=== PATIENT | female | born 1990 | race Caucasian/White ===

== ENCOUNTER 2019-11-30 06:44 | Inpatient (IN) | payer OTHER ==
[~2019-11-30 06:44] MED LIST: Lidocaine 1% with EPINEPHrine 1:100,000 10 ML MDV ONE; ePHEDrine Sulfate/0.9% NaCl/Pf 25 MG/5 ML SYRINGE IV ONE
[2019-11-30] MEDS ORDERED: Nalbuphine 10 MG/ML Syringe IVPUSH PRN (07:44)
[2019-11-30] MEDS ORDERED: Sodium Chloride 0.9% 10 ML Syringe FLUSH PRN (07:44)
[2019-11-30] MEDS ORDERED: Lidocaine 1% 50 ML MDV INJECT ONE (07:44)
[2019-11-30] MEDS ORDERED: Calcium Carbonate 500 MG Tab.Chew PO PRN (07:44)
[2019-11-30] MEDS ORDERED: Oxytocin/Lactated Ringers 10 UNIT/1,000 ML BAG IV SCH ×2 (07:45)
[2019-11-30] MEDS: Lactated Ringers 1,000 ML IV SCH ×4 (08:10→19:03)
[2019-11-30] MEDS ORDERED: ePHEDrine 50 MG/ML SDV IVPUSH PRN (08:33)
[2019-11-30] MEDS ORDERED: Ondansetron 4 MG/2 ML SDV IVPUSH PRN (08:33)
--- NOTE | 2019-11-30 08:33 | PCM.PREANE ---
Preanesthetic Assessment - Procedure Proposed Procedure: Epidural - Anesthesia/Transfusion/Family Hx Anesthesia History: Prior Anesthesia Without Reaction Family History of Anesthesia Reaction: No Transfusion History: No Prior Transfusion(s) Intubation History: Unknown - Review of Systems General: No Symptoms Pulmonary: No Symptoms Cardiovascular: No Symptoms Gastrointestinal: No Symptoms (GERD with ) Neurological: No Symptoms Other: Reports: None, Easy Bruising - Physical Assessment NPO Status Date: 11/30/19 NPO Status Time: 10:00 Vital Signs: HR:120 BP:130/85 Sat:99% Temp:98.2 Resp:20 Height: 1.8 m Weight: 152 kg ASA Class: 3 Mental Status: Alert & Oriented x3 Airway Class: Mallampati = 2 Dentition: Reports: Normal Dentition, Caries Thyro-Mental Finger Breadths: 3 Mouth Opening Finger Breadths: 3 ROM/Head Extension: Full Lungs: Clear to Auscultation, Normal Respiratory Effort Cardiovascular: Regular Rate, Regular Rhythm, No Murmurs - Lab Values: Laboratory Last Values WBC 8.18 K/mm3 (3.98-10.04) 11/30/19 08:00 RBC 4.59 M/mm3 (3.98-5.22) 11/30/19 08:00 Hgb 14.1 gm/dl (11.2-15.7) 11/30/19 08:00 Hct 42.7 % (34.1-44.9) 11/30/19 08:00 MCV 93.0 fl (79.4-94.8) D 11/30/19 08:00 MCH 30.7 pg (25.6-32.2) 11/30/19 08:00 MCHC 33.0 g/dl (32.2-35.5) 11/30/19 08:00 RDW Std Deviation 44.5 fL (36.4-46.3) 11/30/19 08:00 Plt Count 217 K/mm3 (182-369) 11/30/19 08:00 MPV 10.8 fl (9.4-12.3) 11/30/19 08:00 Neut % (Auto) 65.4 % (34.0-71.1) 11/30/19 08:00 Lymph % (Auto) 23.5 % (19.3-51.7) 11/30/19 08:00 Wilbarger % (Auto) 8.1 % (4.7-12.5) 11/30/19 08:00 Eos % (Auto) 1.0 (0.7-5.8) 11/30/19 08:00 Baso % (Auto) 0.4 % (0.1-1.2) 11/30/19 08:00 Neut # (Auto) 5.36 K/mm3 (1.56-6.13) 11/30/19 08:00 Lymph # (Auto) 1.92 K/mm3 (1.18-3.74) 11/30/19 08:00 Wilbarger # (Auto) 0.66 K/mm3 (0.24-0.36) H 11/30/19 08:00 Eos # (Auto) 0.08 K/mm3 (0.04-0.36) 11/30/19 08:00 Baso # (Auto) 0.03 K/mm3 (0.01-0.08) 11/30/19 08:00 Above labs reviewed and noted and within acceptable ranges to proceed with epidural if desired. - Allergies Allergies/Adverse Reactions: Allergies Allergy/AdvReac Type Severity Reaction Status Date / Time No Known Allergies Allergy Verified 11/30/19 08:30 - Anesthesia Plan Pre-Op Medication Ordered: None - Acknowledgements Anesthesia Type Planned: Epidural Pt an Appropriate Candidate for the Planned Anesthesia: Yes Alternatives and Risks of Anesthesia Discussed w Pt/Guardian: Yes Pt/Guardian Understands and Agrees with Anesthesia Plan: Yes PreAnesthesia Questionnaire HEENT History: Reports: None PROPERTY ADMINISTRATOR History: Reports: Fibroids, - Past Surgical History HEENT Surgical History: Reports: Adenoidectomy, Oral Surgery, Tonsillectomy - HOME MEDS Home Medications: Home Meds Vit No.130/Iron/Folic [ Tablet] 1 each PO DAILY 08/18/16 [ History] - CURRENT (IN HOUSE) MEDS Current Meds: Current Medications Calcium Carbonate/Glycine (Tums) 1,000 mg PO Q2H PRN PRN Reason: Indigestion Lactated Ringer's (Ringers, Lactated) 1,000 mls @ 100 mls/hr IV ASDIRECTED NATALIO Last Admin: 11/30/19 08:10 Dose: 40 mls/hr Oxytocin/Lactated Ringer's (Pitocin In Lr 10 Units/1,000 Ml) 10 unit in 1,000 mls @ 12 mls/hr IV TITRATE NATALIO; Protocol Last Titration: 11/30/19 08:26 Dose: 4 munits/min, 24 mls/hr Oxytocin/Lactated Ringer's (Pitocin In Lr 10 Units/1,000 Ml) 10 unit in 1,000 mls @ 500 mls/hr IV .CONTINUOUS NATALIO Nalbuphine HCl (Nubain) 10 mg IVPUSH Q2H PRN PRN Reason: Pain Sodium Chloride (Saline Flush) 10 ml FLUSH ASDIRECTED PRN PRN Reason: Keep Vein Open Discontinued Medications Lidocaine HCl (Xylocaine 1%) 20 ml INJECT ONETIME ONE Stop: 11/30/19 07:45
[2019-11-30] MEDS ORDERED: Phenylephrine 1 MG in Sodium Chloride 0.9% 10 ML IV SCH (08:45)
[2019-11-30] MEDS: Oxytocin/Lactated Ringers 20 UNIT/1,000 ML BAG IV SCH ×2 (11:41→22:00)
[2019-11-30] MEDS ORDERED: Acetaminophen 325 MG Tab PO PRN ×2 (11:42→23:02)
--- NOTE | 2019-11-30 12:11 | PCM.LDHP ---
L&D History of Present Illness - General Date of Service: 11/30/19 Admit Problem/Dx: Patient Status Order with Admit Dx/Problem 11/30/19 07:44 Patient Status [ADT] Routine Admission Diagnosis/Problem Admission Diagnosis/Problem Term 11/30/19 12:02 Lindsey is a 29-year-old 2 para 1001 female who is admitted for elective induction of labor at 39-5/7 weeks gestational age with an SUZETTE of 2019. She has had previous section done for nonreassuring heart tones. Source of Information: Patient History Limitations: Reports: No Limitations - History of Present Illness Introduction:: Lindsey is a 29-year-old 2 para 1001 female who is admitted for elective induction of labor at 39-5/7 weeks gestational age with an SUZETTE of 2019. She has had previous section done for nonreassuring heart tones.The procedure and process of trial of labor after section with an attempt at vaginal after section discussed in detail the patient. She appears to understand the risks, benefits, alternatives of care and follow-up. She wishes to proceed and signed a consent. 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 SUZETTE set at 11/24/2019 by an early ultrasound on 05/25/2019 at 12-5/7 gestational age. This is supported by a second ultrasound done on 07/20/2019 at 20 weeks gestation. Patient had menarche at age 10. Cycles every month. Cycles are regular and she is not using control to conception. Her duration is 4 days. Last period 03/01/2019. Previous delivery occurred on 08/19/2016 at 41-5/7 weeks gestational age. Female infant born after 8 hours of labor weight 6 lbs. 4 oz. and was delivered by section done for distress. Patient was noted to have baby with nuchal cord 3 in meconium-stained amniotic fluid. Baby's name is Deb. course: Patient was first seen at 12 weeks gestation on 05/25/2019. She was seen on a regular basis. Weight gain was from 308 pounds to 335.6 pounds. Height growth was ahead of schedule although was very difficult because of body habitus and weight. Her vital signs remained stable throughout the course. She desires an epidural in labor and delivery. She desires a trial of labor after section for an attempt at vaginal after section. Her group B strep screen is negative. She has plans to breast- feed. She is a centering patient. Laboratory testing and shows blood to be positive with negative CT screen. First labs showed hemoglobin 14.0 g/dL and platelets at 228, 000. Rubella titer shows immunity. RPR is nonreactive. Urine culture was negative. Hepatitis B surface antigen and HIV assays were both negative. Chlamydia and gonorrhea assays were both negative. Patient had normal 1 hour GTT and hemoglobin at the end of second trimester. Strep screen is negative. Allergies: None Medications: 1. Clindamycin phosphate 1% external genital when necessary topically for acne. 2. vitamins 1 daily Past medical history: 1. Acne Past surgical history: 1. Tonsillectomy and adenoidectomy 1992. 2. Oral surgery 2013 section 2016 Family history: Mom is alive with hypercholesterolemia. Father is alive history of CVA and adult-onset diabetes. He is status post coronary artery bypass graft. One brother with asthma. 2 brothers alive and well. One sister who is alive and has recently had a . Patient's mom is adopted. Paternal grandmother is alive. Paternal grandfather secondary to cancertype unknown. No bleeding, clotting, , anesthesia or other problems noted in the family. Social history: Patient is . is Nitish. She does not use any significant loss of alcohol, drugs or tobacco. She is an [employer]. She is a college graduate. She does not use any significant most alcohol, drugs or tobacco. Review of systems: In general patient has no complaints. Baby has been active. Skin: Negative Lungs: No infectious symptoms or shortness of breath Cardiovascular: No chest pain or exercise intolerance Breasts: No lumps, changes in size, pain, dimpling, discharge or axillary or supraclavicular concerns. GI: Negative : Changes associated with . Musculoskeletal: Negative Neurological: Negative In general the patient is well-developed, well-nourished, pleasant female of stated age in no acute distress. Last evaluation in clinic on 11/25/2019 her blood pressure is 110/80, weight was 335.6 pounds with pre- weight of 308.6 pounds. Height is 5 feet 11. Pregravid body mass index is 42.7. Skin is warm dry without lesions. HEENT, neck and back within normal limits. Lungs are clear with good breath sounds in all lung smith. Cardiovascular exam shows regular and rhythm without murmurs. Breast exam deferred at this time having been done at first visit found to be normal. Abdomen is gravid with fundal height of 44 cm. Baby is felt to be in a vertex presentation. Genital per exam shows cervix to 1 cm, 70% effaced, soft, mid position, -3, difficult to feel presenting part felt. Cephalic presentation.. Extremities and neurological exam are grossly within normal limits. Pain Score: 6 - Related Data Allergies/Adverse Reactions: Allergies Allergy/AdvReac Type Severity Reaction Status Date / Time No Known Allergies Allergy Verified 11/30/19 08:30 Home Medications: Home Meds Vit No.130/Iron/Folic [ Tablet] 1 each PO DAILY 08/18/16 [ History] Past Medical History HEENT History: Reports: None CALL CENTER OPERATIONS MANAGER History: Reports: Fibroids, Endocrine/Metabolic History: Reports: Obesity/BMI 30+ - Past Surgical History HEENT Surgical History: Reports: Adenoidectomy, Oral Surgery, Tonsillectomy Social & Family History - Family History Family Medical History: Noncontributory - Tobacco Use Smoking Status *Q: Never Smoker - Caffeine Use Caffeine Use: Reports: None - Recreational Drug Use Recreational Drug Use: No H&P Review of Systems - Review of Systems: Review Of Systems: See Below L&D Exam - Exam Exam: See Below - Vital Signs Vital Signs: Last Vital Signs Temp 36.8 C 11/30/19 07:44 Pulse 118 H 11/30/19 07:44 Resp 16 11/30/19 07:44 BP 130/85 11/30/19 07:44 Pulse Ox 99 11/30/19 07:44 Weight: 152 kg - Patient Data Lab Results Last 24 hrs: Laboratory Results - last 24 hr 11/30/19 11/30/19 Range/Units 08:00 08:00 WBC 8.18 (3.98-10.04) K/mm3 RBC 4.59 (3.98-5.22) M/mm3 Hgb 14.1 (11.2-15.7) gm/dl Hct 42.7 (34.1-44.9) % MCV 93.0 D (79.4-94.8) fl MCH 30.7 (25.6-32.2) pg MCHC 33.0 (32.2-35.5) g/dl RDW Std Deviation 44.5 (36.4-46.3) fL Plt Count 217 (182-369) K/mm3 MPV 10.8 (9.4-12.3) fl Neut % (Auto) 65.4 (34.0-71.1) % Lymph % (Auto) 23.5 (19.3-51.7) % Noble % (Auto) 8.1 (4.7-12.5) % Eos % (Auto) 1.0 (0.7-5.8) Baso % (Auto) 0.4 (0.1-1.2) % Neut # (Auto) 5.36 (1.56-6.13) K/mm3 Lymph # (Auto) 1.92 (1.18-3.74) K/mm3 Noble # (Auto) 0.66 H (0.24-0.36) K/mm3 Eos # (Auto) 0.08 (0.04-0.36) K/mm3 Baso # (Auto) 0.03 (0.01-0.08) K/mm3 Manual Slide Review Normal smear Blood Type O POSITIVE Gel Antibody Screen Negative Result Diagrams: 11/30/19 08:00 Problem List Initiated/Reviewed/Updated: Yes Orders Last 24hrs: Active Orders 24 hr Category Date Time Status Patient Status [ADT] Routine ADT 11/30/19 07:44 Active Activity as Tolerated [RC] PFP Care 11/30/19 07:44 Active Antiembolic Devices [RC] .Routine Care 11/30/19 07:46 Active Communication Order [RC] ASDIRECTED Care 11/30/19 07:44 Active Communication Order [RC] ASDIRECTED Care 11/30/19 07:44 Active Communication Order [RC] ASDIRECTED Care 11/30/19 07:44 Active Communication Order [RC] ASDIRECTED Care 11/30/19 07:44 Active Heart Tones [RC] ASDIRECTED Care 11/30/19 07:45 Active Monitoring [RC] INTERMITTENT Care 11/30/19 07:44 Active Notify Provider [RC] ASDIRECTED Care 11/30/19 07:44 Active Notify Provider [RC] ASDIRECTED Care 11/30/19 08:33 Active Notify Provider [RC] PFP Care 11/30/19 07:44 Active Notify Provider [RC] PRN Care 11/30/19 07:44 Active Peripheral IV Care [RC] Q2HR Care 11/30/19 07:45 Active Pump Management, Intrathecal [RC] ASDIRECTED Care 11/30/19 07:46 Active Urinary Catheter Assessment [RC] ASDIRECTED Care 11/30/19 07:44 Active VTE/DVT Education [RC] PER UNIT ROUTINE Care 11/30/19 07:46 Active Vital Signs [RC] PER UNIT ROUTINE Care 11/30/19 07:44 Active Regular Diet [DIET] Diet 11/30/19 Breakfast Active RAPID PLASMA REAGIN,RPR [CHEM] Stat Lab 11/30/19 08:00 Received Acetaminophen [Tylenol] Med 11/30/19 11:42 Active 650 mg PO Q4H PRN Bupivacaine/fentaNYL/NS [fentaNYL/Bupivacaine/NS 2 MCG- Med 11/30/19 08:45 Active 0.125% 100 ML] 100 ml EPIDUR ASDIRECTED Calcium Carbonate [Tums] Med 11/30/19 07:44 Active 1,000 mg PO Q2H PRN Lactated Ringers [Ringers, Lactated] 1,000 ml Med 11/30/19 07:45 Active IV ASDIRECTED Nalbuphine [Nubain] Med 11/30/19 07:44 Active 10 mg IVPUSH Q2H PRN Ondansetron [Zofran] Med 11/30/19 08:33 Active 4 mg IVPUSH ONETIME PRN Oxytocin/Lactated Ringers [Pitocin in LR 10 Units/1,000 Med 11/30/19 07:45 Active ML] 10 unit in 1,000 ml IV .CONTINUOUS Oxytocin/Lactated Ringers [Pitocin in LR 10 Units/1,000 Med 11/30/19 07:45 Active ML] 10 unit in 1,000 ml IV TITRATE Oxytocin/Lactated Ringers [Pitocin in LR 20 Units/1,000 Med 11/30/19 11:15 Active ML] 20 unit in 1,000 ml IV TITRATE Phenylephrine [Juni-Synephrine] 1 mg Med 11/30/19 08:45 Active Sodium Chloride 0.9% [Normal Saline] 10 ml IV TITRATE Sodium Chloride 0.9% [Saline Flush] Med 11/30/19 07:44 Active 10 ml FLUSH ASDIRECTED PRN ePHEDrine [ePHEDrine sulfate] Med 11/30/19 08:33 Active 5 mg IVPUSH ASDIRECTED PRN fentaNYL [Sublimaze] Med 11/30/19 08:33 Active 100 mcg EPIDUR Q3H PRN DVT/VTE Prophylaxis Reflex [OM.PC] Routine Ot 11/30/19 07:46 Ordered Electronic Heart Tones Ext w TOCO [WOMSER] Ot 11/30/19 07:44 Ordered Routine Electronic Heart Tones Internal [WOMSER] Per Unit Ot 11/30/19 07:44 Ordered Routine Peripheral IV Insertion Adult [OM.PC] Routine Ot 11/30/19 07:44 Ordered Resuscitation Status Routine Resus Stat 11/30/19 07:44 Ordered Medication Orders Acetaminophen (Tylenol) 650 mg PO Q4H PRN PRN Reason: Pain Last Admin: 11/30/19 11:59 Dose: 650 mg Calcium Carbonate/Glycine (Tums) 1,000 mg PO Q2H PRN PRN Reason: Indigestion Ephedrine Sulfate (Ephedrine Sulfate) 5 mg IVPUSH ASDIRECTED PRN PRN Reason: Hypotension Fentanyl (Sublimaze) 100 mcg EPIDUR Q3H PRN PRN Reason: Pain Fentanyl/Bupivacaine HCl (Fentanyl/Bupivacaine/Ns 2 Mcg-0.125% 100 Ml) 100 ml EPIDUR ASDIRECTED NATALIO Lactated Ringer's (Ringers, Lactated) 1,000 mls @ 100 mls/hr IV ASDIRECTED NATALIO Last Admin: 11/30/19 08:10 Dose: 40 mls/hr Oxytocin/Lactated Ringer's (Pitocin In Lr 10 Units/1,000 Ml) 10 unit in 1,000 mls @ 12 mls/hr IV TITRATE NATALIO; Protocol Last Titration: 11/30/19 11:42 Dose: 22 munits/min, 132 mls/hr Titration: 11/30/19 10:49 Dose: 20 munits/min, 120 mls/hr Titration: 11/30/19 10:24 Dose: 18 munits/min, 108 mls/hr Titration: 11/30/19 10:05 Dose: 16 munits/min, 96 mls/hr Titration: 11/30/19 09:48 Dose: 14 munits/min, 84 mls/hr Titration: 11/30/19 09:30 Dose: 12 munits/min, 72 mls/hr Titration: 11/30/19 09:15 Dose: 10 munits/min, 60 mls/hr Titration: 11/30/19 09:00 Dose: 8 munits/min, 48 mls/hr Titration: 11/30/19 08:45 Dose: 6 munits/min, 36 mls/hr Titration: 11/30/19 08:26 Dose: 4 munits/min, 24 mls/hr Admin: 11/30/19 08:10 Dose: 2 munits/min, 12 mls/hr Oxytocin/Lactated Ringer's (Pitocin In Lr 10 Units/1,000 Ml) 10 unit in 1,000 mls @ 500 mls/hr IV .CONTINUOUS NATALIO Phenylephrine HCl 1 mg/ Sodium (Chloride) 10.1 mls @ 1 mls/sec IV TITRATE NATALIO; Protocol Oxytocin/Lactated Ringer's (Pitocin In Lr 20 Units/1,000 Ml) 20 unit in 1,000 mls @ 66 mls/hr IV TITRATE NATALIO; Protocol Last Admin: 11/30/19 11:41 Dose: 66 mls/hr Nalbuphine HCl (Nubain) 10 mg IVPUSH Q2H PRN PRN Reason: Pain Ondansetron HCl (Zofran) 4 mg IVPUSH ONETIME PRN PRN Reason: Nausea/Vomiting Sodium Chloride (Saline Flush) 10 ml FLUSH ASDIRECTED PRN PRN Reason: Keep Vein Open Assessment/Plan Comment:: 1. 39-5/7 week intrauterine , admitted for elective induction of labor for a trial of labor after section for an attempt at vaginal after section. 2.Group B strep negative. 3. Patient desires epidural in labor and delivery 4. Patient plans to breast-feed. 5. Patient was a centering patient 6. Patient has had her Tdap during and is rubella immune. Plan: 1. Pitocin induction of labor to be followed by AROM as indicated 2. Routine protocol for trial labor after section labors consisting of labs, consent for and for trial of labor after section for an attempt at vaginal after section, her continuous monitoring. We'll also let surgeon attestation note there is a trial of labor after section patient in labor and delivery. 3. Epidural when necessary per patient desire 4. Once it feels in place would place a Chawla catheter and sequential compression stockings patient. 5. CBC, type and screen, RPR upon admission. 6. Support breast-feeding decision
[2019-11-30] MEDS: Bupivacaine/fentaNYL/NS 100 ML Bag EPIDUR SCH ×2 (13:53→20:01)
[2019-11-30] MEDS: fentaNYL 100 MCG/2 ML SDV EPIDUR PRN ×2 (13:53→18:10)
[2019-11-30] MEDS ORDERED: Bupivacaine 0.5% 10 ML SDV ONE (17:55)
--- NOTE | 2019-11-30 22:10 | PCM.SN.2 ---
- Free Text/Narrative Note: Delivery note: Lindsey is a 29-year-old 2 para 1001 female who was admitted for elective induction of labor at 39-5/7 weeks gestational age with an SUZETTE of 2019. She has had previous section done for nonreassuring heart tones.The procedure and process of trial of labor after section with an attempt at vaginal after section discussed in detail the patient. She appeared to understand the risks, benefits, alternatives of care and follow-up. She wished to proceed and signed a consent.Patient was started on Pitocin induction in the a.m. of 11/30/2019. She slowly progressed in labor until approximately 1500 hrs. at which time she is evaluated found to be 2 cm dilated. She underwent artificial rupture membranes and placement of intrauterine pressure catheter. Pitocin was decreased as the AROM enhanced her labor significantly. She progressed to complete cervical dilation by approximately 2100 hrs. and at 2123 hours she delivered a viable, ordonez, female named Laina Raygoza direct occiput anterior position. The baby weighed 3430 grams, (7 pounds, 9 ounces), was 22 inches in length and had Apgars of 8 and 9. He was placed on mom's abdomen. The baby's nose and mouth were bulb suctioned and the baby was dried with warm blanket. Pitocin was increased to 500 mL an hour IV to facilitate increase uterine tone and decrease likelihood of bleeding. Cord was allowed to pulsate for 2 minutes and then was clamped 2 and cut by the baby's father Nitish. Cord blood was obtained. The umbilical cord had 3 vessels present within it. The placenta delivered shortly thereafter in a [place] at 2126 hrs. It appeared intact and complete and was discarded per patient desire. Small second-degree perineal laceration was repaired with 3-0 Monocryl in a routine fashion using epidural analgesia as perineal anesthesia. Patient tolerated this very well. Patient plans to breast-feed. Estimated blood loss was 100 mL. Condition: Good
[2019-11-30] MEDS ORDERED: Witch Hazel Medicated Pads 40/Jar TOP PRN (23:02)
[2019-11-30] MEDS ORDERED: Benzocaine/Menthol 20%-0.5% Spray 56 GM Canister TOP PRN (23:02)
[2019-11-30] MEDS: Ibuprofen 800 MG Tab PO PRN (23:48)
[2019-11-30] MEDS: Docusate Sodium 100 MG Cap PO PRN (23:49)
--- NOTE | 2019-12-01 08:05 | PCM48HPAN ---
Post Anesthesia Note - EVALUATION WITHIN 48HRS OF ANESTHETIC Vital Signs in Normal Range: Yes Patient Participated in Evaluation: Yes Respiratory Function Stable: Yes Airway Patent: Yes Cardiovascular Function Stable: Yes Hydration Status Stable: Yes Pain Control Satisfactory: Yes Nausea and Vomiting Control Satisfactory: Yes Mental Status Recovered: Yes Vital Signs: Last Vital Signs Temp 37.1 C 12/01/19 02:59 Pulse 100 12/01/19 02:59 Resp 14 12/01/19 02:59 BP 118/70 12/01/19 02:59 Pulse Ox 97 12/01/19 02:59 - COMMENTS/OBSERVATIONS Free Text/Narrative:: no anesthesia complications noted
[2019-12-01] MEDS: Ibuprofen 800 MG Tab PO PRN ×2 (12:08→19:59)
[2019-12-01] MEDS: Docusate Sodium 100 MG Cap PO PRN (20:01)
--- NOTE | 2019-12-02 08:37 | PCM.DCSUM1 ---
Discharge Summary - Hospital Course Free Text/Narrative:: Lindsey is a 29-year-old 2 para 1001 female who was admitted for elective induction of labor at 39-5/7 weeks gestational age with an SUZETTE of 2019. She has had previous section done for nonreassuring heart tones.The procedure and process of trial of labor after section with an attempt at vaginal after section discussed in detail the patient. She appeared to understand the risks, benefits, alternatives of care and follow-up. She wished to proceed and signed a consent.Patient was started on Pitocin induction in the a.m. of 11/30/2019. She slowly progressed in labor until approximately 1500 hrs. at which time she is evaluated found to be 2 cm dilated. She underwent artificial rupture membranes and placement of intrauterine pressure catheter. Pitocin was decreased as the AROM enhanced her labor significantly. She progressed to complete cervical dilation by approximately 2100 hrs. and at 2123 hours she delivered a viable, ordonez, female infant named Laina Raygoza direct occiput anterior position. The baby weighed 3430 grams, (7 pounds, 9 ounces), was 22 inches in length and had Apgars of 8 and 9. He was placed on mom's abdomen. The baby's nose and mouth were bulb suctioned and the baby was dried with warm blanket. Pitocin was increased to 500 mL an hour IV to facilitate increase uterine tone and decrease likelihood of bleeding. Cord was allowed to pulsate for 2 minutes and then was clamped 2 and cut by the baby's father Nitish. Cord blood was obtained. The umbilical cord had 3 vessels present within it. The placenta delivered shortly thereafter in a [place] at 2126 hrs. It appeared intact and complete and was discarded per patient desire. Small second-degree perineal laceration was repaired with 3-0 Monocryl in a routine fashion using epidural analgesia as perineal anesthesia. Patient tolerated this very well. Patient plans to breast-feed. Estimated blood loss was 100 mL. patient is in very well. She is ambulating well, has minimal lochia. She is nursing. She has had no significant concerns with nursing. She is receives some help from consultants. She is desiring discharge home. Condition: Good - Discharge Data Discharge Date: 12/02/19 Discharge Disposition: Home, Self-Care 01 Condition: Good - Referral to Home Health Primary Care Physician: Ferderick Wilson MD - Patient Instructions Diet: Regular Diet as Tolerated (Nursing diet with increase calories and calcium as recommended.) Activity: As Tolerated (No intercourse or tampons until bleeding resolved) Driving: May Drive Today Showering/Bathing: May Shower (May take a bath) Notify Provider of: Fever, Increased Pain, Swelling and Redness, Nausea and/or Vomiting - Discharge Plan Home Medications: Home Meds Vit No.130/Iron/Folic [ Tablet] 1 each PO DAILY 08/18/16 [ History] Acetaminophen [Tylenol] 650 mg PO Q4H PRN tablet 12/02/19 [Rx] Ibuprofen [Motrin] 800 mg PO Q6H PRN tablet 12/02/19 [Rx] Referrals: Frederick Wilson MD [Primary Care Provider] - (Return to clinicDr. Wilson or Shoshana hoff nurse practitioner2 weeks.) - Discharge Summary/Plan Comment DC Time >30 min.: No Discharge Summary/Plan Comment: Discharge instructions: 1. Discharge home 2. Diet, activity and follow-up discussed with patient. Recommend nursing diet with increased calories and calcium. 3. Precautions given concern increased pain, bleeding, temperature, signs/ symptoms of DVT/PE. 4. Medications per home medication was printed, discussed with and given to the patient. 5. Return to clinic-Dr. Wilson or Shoshana hoff nurse practitioner-[facility] in 2 weeks. Diagnosis: Term -delivered Condition: Good - Patient Data Vitals - Most Recent: Last Vital Signs Temp 36.7 C 12/02/19 03:57 Pulse 93 12/02/19 03:57 Resp 16 12/02/19 03:57 BP 122/62 12/02/19 03:57 Pulse Ox 97 12/02/19 03:57 Weight - Most Recent: 152.407 kg I&O - Last 24 hours: Intake & Output 12/01/19 12/02/19 12/02/19 22:59 06:59 14:59 Intake Total 120 Balance 120 Med Orders - Current: Current Medications Acetaminophen (Tylenol) 650 mg PO Q4H PRN PRN Reason: mild pain or fever Benzocaine/Menthol (Dermoplast Pain Relief [place]) 0 gm TOP ASDIRECTED PRN PRN Reason: Perineal Comfort Measure Last Admin: 11/30/19 23:50 Dose: 1 can Docusate Sodium (Colace) 100 mg PO BID PRN PRN Reason: Constipation Last Admin: 12/01/19 20:01 Dose: 100 mg Ibuprofen (Motrin) 800 mg PO Q6H PRN PRN Reason: Mild pain or fever Last Admin: 12/01/19 19:59 Dose: 800 mg Witch Salma (Tucks) 1 pad TOP ASDIRECTED PRN PRN Reason: Perineal Comfort Measure Last Admin: 11/30/19 23:50 Dose: 1 canister Discontinued Medications Acetaminophen (Tylenol) 650 mg PO Q4H PRN PRN Reason: Pain Last Admin: 11/30/19 11:59 Dose: 650 mg Bupivacaine HCl (Sensorcaine-Mpf 0.5%) Confirm Administered Dose 10 ml .ROUTE .STK-MED ONE Stop: 11/30/19 17:56 Calcium Carbonate/Glycine (Tums) 1,000 mg PO Q2H PRN PRN Reason: Indigestion Ephedrine Sulfate (Ephedrine Sulfate) 5 mg IVPUSH ASDIRECTED PRN PRN Reason: Hypotension Ephedrine Sulfate (Ephedrine 25 Mg/5 Ml Syringe) 25 mg IV .STK-MED ONE Stop: 11/30/19 00:01 Fentanyl (Sublimaze) 100 mcg EPIDUR Q3H PRN PRN Reason: Pain Last Admin: 11/30/19 18:10 Dose: 100 mcg Fentanyl/Bupivacaine HCl (Fentanyl/Bupivacaine/Ns 2 Mcg-0.125% 100 Ml) 100 ml EPIDUR ASDIRECTED NATALIO Last Admin: 11/30/19 20:01 Dose: 100 ml Lactated Ringer's (Ringers, Lactated) 1,000 mls @ 100 mls/hr IV ASDIRECTED NATALIO Last Admin: 11/30/19 19:03 Dose: 40 mls/hr Oxytocin/Lactated Ringer's (Pitocin In Lr 10 Units/1,000 Ml) 10 unit in 1,000 mls @ 12 mls/hr IV TITRATE NATALIO; Protocol Last Titration: 11/30/19 16:35 Dose: Infused Oxytocin/Lactated Ringer's (Pitocin In Lr 10 Units/1,000 Ml) 10 unit in 1,000 mls @ 500 mls/hr IV .CONTINUOUS NATALIO Phenylephrine HCl 1 mg/ Sodium (Chloride) 10.1 mls @ 1 mls/sec IV TITRATE NATALIO; Protocol Oxytocin/Lactated Ringer's (Pitocin In Lr 20 Units/1,000 Ml) 20 unit in 1,000 mls @ 66 mls/hr IV TITRATE NATALIO; Protocol Last Admin: 11/30/19 22:00 Dose: 66 mls/hr Lidocaine HCl (Xylocaine 1%) 20 ml INJECT ONETIME ONE Stop: 11/30/19 07:45 Last Admin: 12/01/19 03:05 Dose: Not Given Lidocaine/Epinephrine (Xylocaine 1% With Epinephrine 1:100,000) 10 ml .ROUTE .STK-MED ONE Stop: 11/30/19 00:01 Miscellaneous Medication (Phenylephrine 1 Mg/10 Ml-Ns) 1 mg IV .STK-MED ONE Stop: 11/30/19 00:01 Nalbuphine HCl (Nubain) 10 mg IVPUSH Q2H PRN PRN Reason: Pain Ondansetron HCl (Zofran) 4 mg IVPUSH ONETIME PRN PRN Reason: Nausea/Vomiting Sodium Chloride (Saline Flush) 10 ml FLUSH ASDIRECTED PRN PRN Reason: Keep Vein Open
[2019-12-02 10:29] VITALS: BP 130/79; PULSE 103
== END 2019-12-02 13:45 | disposition home or self-care (01) | DRG 807 ==
LOC: JD.OB 06:44 → OBSVTOIN 21:23 → JD.OB 21:23
PROVIDERS: ADMIT Obstetrics & Gynecology; ATTEND Obstetrics & Gynecology
PROC: 10E0XZZ Delivery of Products of Conception, External Approach (ICD-10-PCS; principal; 2019-11-30)
PROC: 0KQM0ZZ Repair Perineum Muscle, Open Approach (ICD-10-PCS; 2019-11-30)
PROC: 10907ZC Drainage of Amniotic Fluid, Therapeutic from Products of Conception, Via Natural or Artificial Opening (ICD-10-PCS; 2019-11-30)
PROC: 3E033VJ Introduction of Other Hormone into Peripheral Vein, Percutaneous Approach (ICD-10-PCS; 2019-11-30)
PROC: 10H07YZ Insertion of Other Device into Products of Conception, Via Natural or Artificial Opening (ICD-10-PCS; 2019-11-30)
PROC: 3E0R3BZ Introduction of Anesthetic Agent into Spinal Canal, Percutaneous Approach (ICD-10-PCS; 2019-11-30)
DX: O34.211 Maternal care for low transverse scar from previous cesarean delivery (principal); Z37.0 Single live birth; Z3A.39 39 weeks gestation of pregnancy; O70.1 Second degree perineal laceration during delivery
CPT/HCPCS: 01967; 36415; 51702; 59025; 59200; 59409; 85025; 86592; 86850; 86900; 86901; A9270-GY; J0171; J2370; J2590; J3010; J3490; J7120